=== PATIENT | male | born 1955 | race Caucasian/White ===

== ENCOUNTER 2017-07-27 10:44 | Emergency (ER) | payer OTHER ==
[~2017-07-27] VITALS: Ht 175.3 cm; Wt 125.0 kg
[2017-07-27] MEDS ORDERED: TETANUS AND DIPHTHERIA TOX/PF 0.5ML SYR (ADULT) IM ONE (16:00)
[2017-07-27] MEDS ORDERED: TETANUS, DIPHTHERIA, PERTUSSIS VAC/PF 0.5ML (>7YR OLD) IM ONE (16:30)
[2017-07-27 16:50] VITALS: BP 131/69
== END 2017-07-27 17:09 | disposition home or self-care (01) ==
LOC: ER 10:44
DX: K61.1 Rectal abscess (principal); E11.9 Type 2 diabetes mellitus without complications; K64.4 Residual hemorrhoidal skin tags
CPT/HCPCS: 90471; 90715; 99283; Z7610; 90714